=== PATIENT | male | born 1980 | race Caucasian/White ===

== ENCOUNTER 2019-06-30 02:55 | Inpatient (IN) | payer OTHER ==
[~2019-06-30] VITALS: Ht 185.4 cm; Wt 124.0 kg
[2019-06-30] MEDS ORDERED: MORPHINE SULFATE 4 MG/ML, 1ML IVPush PRN ×2 (03:30→05:30)
[2019-06-30] MEDS ORDERED: SODIUM CHLORIDE FLUSH 10ML SYR IVF ONE (03:30)
[2019-06-30] MEDS ORDERED: KETOROLAC 30 MG/1 ML IVPush ONE (03:30)
[2019-06-30] MEDS ORDERED: ONDANSETRON 2MG/ML, 2ML IVPush ONE (03:30)
[2019-06-30] MEDS ORDERED: ONDANSETRON 2MG/ML, 2ML ONE (03:31)
[2019-06-30] MEDS ORDERED: MORPHINE SULFATE 4 MG/ML, 1ML ONE ×2 (03:31→05:04)
[2019-06-30] MEDS ORDERED: KETOROLAC 30 MG/1 ML ONE (03:31)
--- NOTE | 2019-06-30 03:41 | NUR ---
PT TO CT. PT MEDICATED FOR PAIN. PT PLACED ON VITALS MONITORS.
[2019-06-30 03:44] LABS: BASOPHILS # (AUTO) 0.04 x10^3/uL (0-0.1); BASOPHILS % (AUTO) 1 % (0-1); EOSINOPHILS # (AUTO) 0.13 x10^3/uL (0-0.4); EOSINOPHILS % (AUTO) 2 % (1-7); LYMPHOCYTES # (AUTO) 2.57 x10^3/uL (1-3.4); LYMPHOCYTES % (AUTO) 42 % (22-44); MD NO; MEAN CORPUSCULAR HEMOGLOBIN 31.7 pg (27.5-34.5); MEAN CORPUSCULAR HGB CONC 34.2 g/dL (33.2-36.2); MEAN CORPUSCULAR VOLUME 92.6 fL (81-97); MEAN PLATELET VOLUME 7.6 fL (7.4-10.4); MONOCYTES # (AUTO) 0.55 x10^3/uL (0.2-0.8); MONOCYTES % (AUTO) 9 % (2-9); NEUTROPHILS # (AUTO) 2.81 x10^3/uL (1.8-6.8); NEUTROPHILS % (AUTO) 46 % (42-75); PLATELET COUNT 215 x10^3/uL (130-400)
--- NOTE | 2019-06-30 03:50 | NUR ---
PT PLACED ON 2L O2 PER N/C DUE TO DESATING TO 86% ON RA AFTER PAIN [employer]. PT BACK FROM CT. WILL CONTINUE TO MONITOR. BILAT BEDRAILS UP, CALL LIGHT AT [facility] .
[2019-06-30 03:57] LABS: ALANINE AMINOTRANSFERASE 33 U/L (12-78); ALBUMIN 4.3 g/dL (3.4-5.0); ANION GAP 7 mmol/L (5-15); CALCIUM 8.4 mg/dL (8.5-10.1); CHLORIDE 110 mmol/L (98-107); CREATININE 1.17 mg/dL (0.7-1.3)
[2019-06-30 03:59] LABS: ALKALINE PHOSPHATASE 80 U/L (45-117); BILIRUBIN,TOTAL 0.7 mg/dL (0.2-1.0); TOTAL PROTEIN 7.3 g/dL (6.4-8.2)
[2019-06-30 04:05] LABS: CULTURE INDICATED? YES; MICROSCOPIC INDICATED
--- NOTE | 2019-06-30 04:49 | NUR ---
pt resting in bed with eyes closed. pt easily arousable. pt stated he feel much better after pain meds. will continue to monitor.
[2019-06-30] MEDS ORDERED: CEFTRIAXONE PMX 1GM/50ML 50 ML IV ONE (05:00)
[2019-06-30] MEDS ORDERED: CEFTRIAXONE PMX 1GM/50ML 50 ML ONE (05:06)
--- NOTE | 2019-06-30 05:20 | NUR ---
pt medicated for pain per emar. pt to be admitted, pt aware.
[2019-06-30] MEDS ORDERED: TAMSULOSIN 0.4 MG CAP.ER.24H PO ONE ×2 (05:30→17:30)
[2019-06-30] MEDS ORDERED: TAMSULOSIN 0.4 MG CAP.ER.24H ONE (05:45)
[2019-06-30] MEDS ORDERED: ONDANSETRON 2MG/ML, 2ML IVPush PRN (06:00)
[2019-06-30] MEDS ORDERED: ACETAMINOPHEN 325 MG TABLET PO PRN (06:00)
--- NOTE | 2019-06-30 06:26 | NUR ---
report to Hubert lester
[2019-06-30] MEDS: morphine SULFATE 10 MG/ML, 1ML IVPush PRN ×3 (07:54→16:24)
[2019-06-30 07:55] VITALS: BP 121/77
[2019-06-30] MEDS: SODIUM CHLORIDE 0.9% 1,000 ML IV SCH ×2 (08:12→16:19)
[2019-06-30 13:15] VITALS: BP 140/86
[2019-06-30] MEDS: KETOROLAC 30 MG/1 ML IVPush SCH ×2 (17:31→23:30)
[2019-06-30 18:25] VITALS: BP 115/74
[2019-07-01] MEDS: SODIUM CHLORIDE 0.9% 1,000 ML IV SCH ×2 (00:11→08:00)
[2019-07-01 00:17] VITALS: BP 109/69
[2019-07-01] MEDS: morphine SULFATE 10 MG/ML, 1ML IVPush PRN (04:45)
[2019-07-01] MEDS ORDERED: CEFTRIAXONE PMX 1GM/50ML 50 ML IV SCH (05:00)
[2019-07-01] MEDS: KETOROLAC 30 MG/1 ML IVPush SCH ×2 (05:28→11:30)
[2019-07-01 05:49] LABS: BASOPHILS # (AUTO) 0.02 x10^3/uL (0-0.1); BASOPHILS % (AUTO) 0 % (0-1); EOSINOPHILS % (AUTO) 2 % (1-7); LYMPHOCYTES # (AUTO) 1.76 x10^3/uL (1-3.4); LYMPHOCYTES % (AUTO) 30 % (22-44); MD NO; MEAN CORPUSCULAR HEMOGLOBIN 30.4 pg (27.5-34.5); MEAN CORPUSCULAR HGB CONC 32.9 g/dL (33.2-36.2); MEAN CORPUSCULAR VOLUME 92.3 fL (81-97); MEAN PLATELET VOLUME 7.4 fL (7.4-10.4); MONOCYTES # (AUTO) 0.63 x10^3/uL (0.2-0.8); MONOCYTES % (AUTO) 11 % (2-9); NEUTROPHILS # (AUTO) 3.35 x10^3/uL (1.8-6.8); NEUTROPHILS % (AUTO) 57 % (42-75); PLATELET COUNT 164 x10^3/uL (130-400); RED BLOOD COUNT 4.86 x10^6/uL (4.38-5.82); RED CELL DISTRIBUTION WIDTH 12.7 % (9.4-14.8)
[2019-07-01 05:59] LABS: ANION GAP 5 mmol/L (5-15); CALCIUM 8.1 mg/dL (8.5-10.1); CHLORIDE 111 mmol/L (98-107); CREATININE 0.97 mg/dL (0.7-1.3)
[2019-07-01 07:50] VITALS: BP 118/70
[2019-07-01] MEDS ORDERED: TAMSULOSIN 0.4 MG CAP.ER.24H PO SCH (09:00)
[2019-07-01] MEDS ORDERED: KETOROLAC 30 MG/1 ML IVPush PRN (13:00)
[2019-07-01 13:11] VITALS: BP 122/72
[2019-07-01] MEDS ORDERED: CEFD300C37 PO (16:16)
[2019-07-01] MEDS ORDERED: ACET325T26 PO (16:16)
[2019-07-01] MEDS ORDERED: TRAM50TA2 PO (16:16)
== END 2019-07-01 19:00 | disposition home or self-care (01) | DRG 690 ==
LOC: ED 05:21 → EDIP 05:36 → 3N 06:54
PROVIDERS: ADMIT Internal Medicine; ATTEND Internal Medicine
DX: N30.01 Acute cystitis with hematuria (principal); N13.6 Pyonephrosis; I48.0 Paroxysmal atrial fibrillation; K40.90 Unilateral inguinal hernia, without obstruction or gangrene, not specified as recurrent
CPT/HCPCS: 36415; 74176; 80048; 80053; 81001; 83690; 83735; 85025; 87077; 87086; 96374; 96375; G0378; J0696; J1885; J2405; J2270; J7030

== ENCOUNTER → 2020-09-25 | Outpatient (CLI) | payer OTHER ==
[~2020-09-25] MED LIST: ACET325T26 PO; CEFD300C37 PO; TRAM50TA2 PO
== END | disposition home or self-care (01) ==
LOC: STAR 15:37
PROVIDERS: ATTEND Anesthesiology
DX: Z20.828 Contact with and (suspected) exposure to other viral communicable diseases (principal)
CPT/HCPCS: 87635

== ENCOUNTER 2020-09-30 06:44 | Day surgery (SDC) | payer OTHER ==
[~2020-09-30] VITALS: Ht 185.4 cm; Wt 113.3 kg
[2020-09-30] MEDS ORDERED: NONE PER PT (07:10)
[2020-09-30 07:12] VITALS: BP 132/90
[2020-09-30] MEDS ORDERED: LACTATED RINGERS 1,000 ML IV SCH (07:30)
[2020-09-30] MEDS ORDERED: OXYcodone/APAP 5/325MG TABLET PO PRN (07:30)
[2020-09-30] MEDS ORDERED: CHLORHEXIDINE 15 ML UDC MM ONE (07:30)
[2020-09-30] MEDS ORDERED: MIDAZOLAM 1 MG/ML, 2ML ONE (07:36)
[2020-09-30] MEDS ORDERED: FENTANYL PF 100 MCG/2ML ONE ×2 (07:36→08:14)
[2020-09-30] MEDS ORDERED: OXYC1TAB14 PO (07:37)
[2020-09-30] MEDS ORDERED: hydrALAzine 20 MG/ML, 1ML IV PRN (08:00)
[2020-09-30] MEDS ORDERED: DIPHENHYDRAMINE 50 MG/ML, 1ML IVPush PRN (08:00)
[2020-09-30] MEDS ORDERED: MEPERIDINE/PF 25MG/0.5ML IVPush PRN (08:00)
[2020-09-30] MEDS ORDERED: FENTANYL PF 100 MCG/2ML IV PRN (08:00)
[2020-09-30] MEDS ORDERED: PROMETHAZINE 25 MG/ML, 1ML IVPush PRN (08:00)
[2020-09-30] MEDS ORDERED: HYDROmorphone 1 MG/ML, 1ML INJ IVPush PRN (08:00)
[2020-09-30] MEDS ORDERED: LABETALOL 5MG/ML, 20ML IV PRN (08:00)
[2020-09-30] MEDS ORDERED: HYDROcodone/APAP 7.5-325MG/15ML UDC PO PRN (08:00)
[2020-09-30] MEDS ORDERED: HALOPERIDOL 5 MG/ML IV PRN (08:00)
[2020-09-30] MEDS ORDERED: DEXAMETHASONE 4 MG/ML, 1ML ONE (08:02)
[2020-09-30] MEDS ORDERED: KETOROLAC 30 MG/1 ML ONE (08:15)
[2020-09-30] MEDS ORDERED: PROPOFOL 10 MG/ML, 20ML ONE (08:27)
[2020-09-30] MEDS ORDERED: ONDANSETRON 2MG/ML, 2ML ONE (08:27)
[2020-09-30] MEDS ORDERED: CEFAZOLIN 1,000 MG ONE (08:27)
[2020-09-30] MEDS ORDERED: BUPIVACAINE/PF 0.25% INFIL ONE (08:29)
== END 2020-09-30 11:50 | disposition home or self-care (01) ==
LOC: OUT 06:44
PROVIDERS: ATTEND Surgery
DX: N50.89 Other specified disorders of the male genital organs (principal)
CPT/HCPCS: 38531; 76870; 88305; 88333; J0690; J1100; J1885; J2250; J2405; J2704; J3010; J7120

== ENCOUNTER 2020-10-12 13:19 | Day surgery (SDC) | payer OTHER ==
[~2020-10-12] VITALS: Ht 185.4 cm; Wt 111.8 kg
[~2020-10-12 13:19] MED LIST changes: +NONE PER PT; +OXYC1TAB14 PO
[2020-10-12] MEDS ORDERED: CHLORHEXIDINE 15 ML UDC ONE (13:49)
[2020-10-12] MEDS ORDERED: CHLORHEXIDINE 15 ML UDC MM ONE (14:00)
[2020-10-12] MEDS ORDERED: LACTATED RINGERS 1,000 ML IV SCH (14:00)
[2020-10-12 14:13] VITALS: BP 116/80
[2020-10-12 14:32] LABS: BASOPHILS % (AUTO) 1 % (0-1); EOSINOPHILS % (AUTO) 1 % (1-7); LYMPHOCYTES % (AUTO) 27 % (22-44); MEAN CORPUSCULAR HEMOGLOBIN 30.7 pg (27.5-34.5); MEAN CORPUSCULAR HGB CONC 34.8 g/dL (33.2-36.2); MEAN PLATELET VOLUME 7.1 fL (7.4-10.4); MONOCYTES % (AUTO) 8 % (2-9); NEUTROPHILS % (AUTO) 64 % (42-75); PLATELET COUNT 214 x10^3/uL (130-400); RED BLOOD COUNT 5.27 x10^6/uL (4.38-5.82); RED CELL DISTRIBUTION WIDTH 12.8 % (9.4-14.8)
[2020-10-12 14:34] LABS: MD NO
[2020-10-12 14:43] LABS: ANION GAP 5 mmol/L (5-15); CALCIUM 8.8 mg/dL (8.5-10.1); CHLORIDE 110 mmol/L (98-107); CREATININE 0.89 mg/dL (0.7-1.3)
[2020-10-12] MEDS ORDERED: MIDAZOLAM 1 MG/ML, 2ML ONE (14:48)
[2020-10-12] MEDS ORDERED: FENTANYL PF 250 MCG/5ML ONE (14:49)
[2020-10-12] MEDS ORDERED: BUPIVACAINE/PF 0.25% ONE (14:53)
[2020-10-12] MEDS ORDERED: CEFAZOLIN 1,000 MG ONE (15:14)
[2020-10-12] MEDS ORDERED: NEOSTIGMINE 1 MG/ML, 10ML ONE (15:14)
[2020-10-12] MEDS ORDERED: ROCURONIUM 10 MG/ML,10ML ONE (15:14)
[2020-10-12] MEDS ORDERED: PROPOFOL 10 MG/ML, 20ML ONE (15:14)
[2020-10-12] MEDS ORDERED: DEXAMETHASONE 4 MG/ML, 1ML ONE (15:14)
[2020-10-12] MEDS ORDERED: ONDANSETRON 2MG/ML, 2ML ONE (15:14)
[2020-10-12] MEDS ORDERED: GLYCOPYRROLATE 0.2MG/1ML, 5ML ONE (15:14)
[2020-10-12] MEDS ORDERED: MEPERIDINE/PF 25MG/0.5ML IVPush PRN (15:30)
[2020-10-12] MEDS ORDERED: DIAZEPAM 5 MG/ML, 2ML IVPush PRN (15:30)
[2020-10-12] MEDS ORDERED: OXYcodone 5 MG/5 ML ORAL.SOL UDC PO PRN (15:30)
[2020-10-12] MEDS ORDERED: PROMETHAZINE 25 MG/ML, 1ML IVPush PRN (15:30)
[2020-10-12] MEDS ORDERED: ONDANSETRON 2MG/ML, 2ML IVPush PRN (15:30)
[2020-10-12] MEDS ORDERED: DIPHENHYDRAMINE 50 MG/ML, 1ML IVPush PRN (15:30)
[2020-10-12] MEDS ORDERED: ACETAMINOPHEN 325 MG TABLET PO PRN (15:30)
[2020-10-12] MEDS ORDERED: OXYcodone 5 MG/5 ML ORAL.SOL UDC ONE (16:58)
[2020-10-12] MEDS ORDERED: FENTANYL PF 100 MCG/2ML ONE (16:58)
[2020-10-12] MEDS ORDERED: HYDROmorphone 1 MG/ML, 1ML INJ ONE (17:03)
[2020-10-12] MEDS: FENTANYL PF 100 MCG/2ML IV PRN ×2 (17:04→17:09)
[2020-10-12] MEDS: HYDROmorphone 1 MG/ML, 1ML INJ IVPush PRN ×2 (17:14→17:22)
== END 2020-10-12 19:05 | disposition home or self-care (01) ==
LOC: OUT 13:19
PROVIDERS: ATTEND Urology
DX: N50.89 Other specified disorders of the male genital organs (principal); D29.8 Benign neoplasm of other specified male genital organs; D17.6 Benign lipomatous neoplasm of spermatic cord; Z20.822 Contact with and (suspected) exposure to COVID-19; Z79.891 Long term (current) use of opiate analgesic; Z79.899 Other long term (current) drug therapy; Z87.442 Personal history of urinary calculi; Z90.79 Acquired absence of other genital organ(s); Z98.52 Vasectomy status
CPT/HCPCS: 36415; 54530; 80048; 82105; 83615; 84402; 84403; 84702; 85025; 87635; 88305; 88307; J0690; J1100; J1170; J2250; J2405; J2704; J2710; J3010; J7120